=== PATIENT | female | born 1980 | race Caucasian/White ===

== ENCOUNTER 2017-06-09 21:18 | Emergency (ER) | payer MEDICAID ==
[2017-06-09] MEDS ORDERED: MECLIZINE 25 MG TABLET PO ONE (21:35)
--- NOTE | 2017-06-09 21:39 | Emergency Department Record ---
History of Present Illness - General Chief Complaint: Dizziness Stated Complaint: WEAKNESS AND DIZZY Time Seen by Provider: 06/09/17 21:25 Source: Patient Mode of Arrival: Wheelchair Limitations: No limitations - History of Present Illness Initial Comments: 36 yo female presents to ED for evaluation of intermittent episodes of dizzines for the past 3 weeks, reports tonights episode lasted approximately 10 minutes but is now improving. Patient reports that getting up from sitting to standing worsens her symptoms, denies focal weakness, change in voice, or change in vision. Patient denies health problems at her baseline. MD Complaint: Dizziness Onset/Timin -: Week(s) Description: Nausea, "Room spinning" History of Trauma: No Improves With: Rest Worsens With: Movement, Position - Allen Coma Scale Eye Response: (4) Open spontaneously Motor Response: (6) Obeys commands Verbal Response: (5) Oriented Alejandrina Total: 15 - Related Data Home Medications Medication Instructions Recorded Confirmed Last Taken Hydrocodone/Acetaminophen [[place] 1 tab PO Q6H PRN 06/09/17 06/09/17 Unknown 5mg/325mg] Ibuprofen [Motrin 600Mg] 600 mg PO Q8H 06/09/17 06/09/17 Unknown Previous Rx's Medication Instructions Recorded Meclizine HCl [Antivert] 25 mg PO Q8H PRN #20 tablet 06/09/17 Allergies Allergy/AdvReac Type Severity Reaction Status Date / Time No Known Drug Allergies Allergy Verified 06/09/17 21:20 Travel Screening - Travel/Exposure Within Last 30 Days Have you traveled within the last 30 days?: No - Travel Symptoms Symptom Screening: None Review of Systems Constitutional: Denies: Chills, Fever, Malaise, Night sweats Eyes: Denies: Eye discharge, Eye pain ENT: Denies: Congestion, Ear pain, Epistaxis Respiratory: Denies: Cough, Dyspnea Cardiovascular: Denies: Chest pain, Dyspnea on exertion Endocrine: Denies: Fatigue, Heat or cold intolerance Gastrointestinal: Denies: Abdominal pain, Nausea, Vomiting Genitourinary: Denies: Incontinence, Retention Musculoskeletal: Denies: Arthralgia, Back pain, Gout, Joint swelling Skin: Denies: Bruising, Change in color Neurological: Reports: Vertigo. Denies: Abnormal gait, Confusion, Headache, Seizure Psychiatric: Denies: Anxiety Hematological/Lymphatic: Denies: Anemia, Blood Clots Past Medical History - SOCIAL HISTORY Smoking Status: Never smoker - RESPIRATORY Hx Respiratory Disorders: Yes Hx Asthma: Yes Comment:: seasonal allergies - CARDIOVASCULAR Hx Cardio Disorders: No - NEURO Hx Neuro Disorders: No - GI Hx GI Disorders: No - Hx Genitourinary Disorders: No - ENDOCRINE Hx Endocrine Disorders: No - MUSCULOSKELETAL Hx Musculoskeletal Disorders: Yes Comment:: neck-herniated disc C 6-7 - PSYCH Hx Psych Problems: No - HEMATOLOGY/ONCOLOGY Hx Hematology/Oncology Disorders: No Family Medical History Any Significant Family History?: Yes Hx Diabetes: Brother/Sister Hx HTN: Father, Brother/Sister Physical Exam - General General Appearance: Alert, Oriented x3, Cooperative, Mild distress Limitations: No limitations - Head Head exam: Atraumatic, Normocephalic, Normal inspection Head exam detail: negative: Abrasion, Contusion, Brito's sign, General tenderness, Hematoma, Laceration - Eye Eye exam: Normal appearance. negative: Conjunctival injection, Periorbital swelling, Periorbital tenderness, Scleral icterus - ENT Ear exam: negative: Auricular hematoma, Auricular trauma Nasal Exam: negative: Active bleeding, Discharge, Dried blood, Foreign body Mouth exam: negative: Drooling, Laceration, Muffled voice, Tongue elevation - Neck Neck exam: Normal inspection. negative: Meningismus, Tenderness - Respiratory Respiratory exam: Normal lung sounds bilaterally. negative: Rales, Respiratory distress, Rhonchi, Stridor ( ) - Cardiovascular Cardiovascular Exam: Regular rate, Normal rhythm, Normal heart sounds - GI/Abdominal GI/Abdominal exam: Soft. negative: Rebound, Rigid, Tenderness - Rectal Rectal exam: Deferred - exam: Deferred - Extremities Extremities exam: Normal inspection. negative: Calf tenderness, Pedal edema, Tenderness - Back Back exam: Denies: CVA tenderness (R), CVA tenderness (L) - Neurological Neurological exam: Alert, CN II-XII intact, Normal gait, Oriented X3. negative : Motor sensory deficit - Skin Skin exam: Normal color. negative: Abrasion Type of lesion: negative: abrasion Course Vital Signs 06/09/17 21:27 Temperature 97.9 F Pulse Rate [ 88 Pulse Ox Probe] Respiratory 18 Rate Blood Pressure 140/86 [Right Arm] Pulse Ox 100 - Reevaluation(s) Reevaluation #1: 06/09/17 21:47 EKG: NSR 72 Normal axis, normal intervals No acute ST-T wave changes Reevaluation #2: 06/09/17 22:09 Labs reviewed and are grossly unremarkable for an acute process. Reevaluation #3: 06/09/17 22:23 patient was updated on all results, reports that her vertigo symptoms are minimal at this time. Patient stands up immediately without difficulty, and ambulates with steady gait. Patient's symptoms appear c/w peripheral vertigo symptoms, and the patient appears stable for discharge at this time. Medical Decision Making - Lab Data Result diagrams: 06/09/17 21:41 06/09/17 21:41 Disposition Disposition: Discharge Clinical Impression: Vertigo Disposition: Home, Self-Care Condition: (2) Stable Instructions: Dizziness (ED) Additional Instructions: Return to ED if your symptoms worsen or if you have any concerns. Antivert as directed. Follow-up with your family doctor in 3-5 days as directed. Prescriptions: Meclizine HCl [Antivert] 25 mg PO Q8H PRN #20 tablet PRN Reason: Dizziness Forms: Patient Portal Access Time of Disposition: 22:27 Quality - Quality Measures Quality Measures: N/A - Blood Pressure Screening Does Patient Have Any of the Following: No Blood Pressure Classification: Pre-Hypertensive BP Reading Systolic Measurement: 140 Diastolic Measurement: 86 Screening for High Blood Pressure: < Pre-Hypertensive BP, F/U Documented > [ [id number]] Pre-Hypertensive Follow-up Interventions: Referral to alternative/primary care provider.
[2017-06-09 21:51] LABS: BASO % 0.4 % (0-6); EOS % 1.4 % (0-6); GRAN % 55.6 % (47-80); HEMATOCRIT 37.9 % (35.0-47.0); MEAN CELL VOLUME 89.2 fl (81-97); MEAN CORPUSCULAR HEMOGLOBIN 30.6 pg (27-33); MEAN CORPUSCULAR HGB CONC 34.3 g/dl (32-36); MEAN PLATELET VOLUME 9.8 fl (7.4-10.4); MONO % 7.6 % (0-9); PLATELET COUNT 277 K/uL (130-400); RED BLOOD COUNT 4.25 M/uL (3.80-5.40); RED CELL DISTRIBUTION WIDTH 12.3 % (11.5-14.5); WHITE BLOOD COUNT W/O DIFF 7.2 K/uL (4.2-12.2)
[2017-06-09 21:58] LABS: URINE APPEARANCE CLEAR; URINE BILIRUBIN NEGATIVE (NEGATIVE); URINE BLOOD NEGATIVE (NEGATIVE); URINE COLOR YELLOW; URINE GLUCOSE (UA) NEGATIVE (NEGATIVE); URINE KETONE NEGATIVE (NEGATIVE); URINE LEUKOCYTE ESTERASE NEGATIVE (NEGATIVE); URINE NITRITE NEGATIVE (NEGATIVE); URINE PROTEIN NEGATIVE (NEGATIVE); URINE UROBILINOGEN 0.2 E.U./dL (0.20 - 1.00)
[2017-06-09 21:59] LABS: BLOOD UREA NITROGEN 13 mg/dL (6-20); CREATININE 0.5 mg/dL (0.5-0.9); EST GLOMERULAR FILTRATION RATE > 60 mL/min; TOTAL PROTEIN 6.9 g/dL (6.6-8.7)
[2017-06-09 22:01] LABS: GLUCOSE,RANDOM 106 mg/dL (74-109)
[2017-06-09 22:02] LABS: HCG,QUALITATIVE URINE NEGATIVE (NEGATIVE)
[2017-06-09 22:04] LABS: ALB/GLOB RATIO 1.5 (1.1-1.8); ALBUMIN 4.1 g/dL (4.0-5.0); ALKALINE PHOSPHATASE 44 U/L (35-104); ALT/SGPT 16 U/L (<33); AST/SGOT 16 U/L (10.0-35.0)
== END 2017-06-09 22:36 | disposition home or self-care (01) ==
LOC: ER 21:18
DX: R42 Dizziness and giddiness (principal); R11.0 Nausea; R53.1 Weakness
CPT/HCPCS: 80053; 81003; 81025; 85025; 93005; 93010; 99284